=== PATIENT | female | born 1995 | race Caucasian/White ===

== ENCOUNTER 2019-05-23 12:28 | Outpatient (CLI) | payer MEDICAID ==
[~2019-05-23] VITALS: Ht 162.6 cm; Wt 80.9 kg
--- NOTE | 2019-05-23 12:40 | NUR ---
Patient to [facility] with significant other via wheelchair, changed into gown, FHR/TOCO monitors placed and explained. Patient states she "felt some contractions starting around 0900 this morning and then has had constant abdomnial pain since then" Denies any leaking of fluid or vaginal bleeding. Plan of care discussed. 1252:SVE-closed/thick/high
[2019-05-23] MEDS ORDERED: PRENATAL TABLET PO (12:54)
[2019-05-23] MEDS ORDERED: FERRETTS I40 MG/15 M PO (12:54)
[2019-05-23 13:00] VITALS: BP 108/64; PULSE 95; TEMP 99
[2019-05-23 13:20] VITALS: BP 102/56; PULSE 82
--- NOTE | 2019-05-23 13:20 | NUR ---
Patient given discharge instructions and understand/agrees, signs papers. Off monitor to change. 1330: Patient ambulatory off unit with significant other.
== END 2019-05-23 13:30 | disposition home or self-care (01) ==
LOC: LDRO 12:28 → LDR 12:40 → LDRO 13:30
DX: O62.9 Abnormality of forces of labor, unspecified (principal); O26.893 Other specified pregnancy related conditions, third trimester; R10.9 Unspecified abdominal pain; Z3A.30 30 weeks gestation of pregnancy
CPT/HCPCS: OP

== ENCOUNTER 2019-07-27 07:06 | Inpatient (IN) | payer MEDICAID ==
[2019-07-27] VITALS (22 sets, daily range): BP systolic 101–124; BP diastolic 54–77; PULSE 69–126; TEMP 97.4–98.3
[~2019-07-27] VITALS: Ht 162.6 cm; Wt 85.0 kg
[~2019-07-27 07:06] MED LIST: FERRETTS I40 MG/15 M PO; PRENATAL TABLET PO
[2019-07-27 08:20] LABS: HEMOGLOBIN 10.7 g/dl (12.5-16.0); MEAN CELL VOLUME 80 fl (80.0-100.0); MEAN CORPUSCULAR HEMOGLOBIN 26 pg (27.0-31.0); MEAN CORPUSCULAR HGB CONC 32 g/dl (33.0-37.0); MEAN PLATELET VOLUME 10.5 fl (7.4-10.4); PLATELET COUNT 386 K/mm3 (130-400); RED BLOOD COUNT 4.17 M/mm3 (4.10-5.30); REDCELL DISTRIBUTION WIDTH-CV 16.3 % (11.5-14.5)
[2019-07-27 08:30] LABS: HEMATOCRIT 33.3 % (37.0-47.0)
[2019-07-27 08:39] LABS: TRICYCLIC ANTIDEPRESS URINE NEGATIVE
[2019-07-27 09:24] LABS: BAND 2 % (0-10); EOSINOPHIL 1 % (0-4); LYMPHOCYTE 39 % (20.0-51.0); METAMYELOCYTE 1 % (0-0); MYELOCYTE 1 % (0-0); NEUTROPHILS 50 % (42.0-75.2); PLATELET ESTIMATE NORMAL (NORMAL)
[2019-07-28] VITALS: BP 97/52; PULSE 69; TEMP 98
[2019-07-28 08:00] VITALS: BP 111/75; PULSE 74; TEMP 97.8
[2019-07-28 16:00] VITALS: BP 107/63; PULSE 69; TEMP 97.7
[2019-07-28 21:00] VITALS: BP 110/66; PULSE 78; TEMP 98.9
[2019-07-29 07:00] VITALS: BP 112/62; PULSE 79; TEMP 98.6
[2019-07-29] MEDS ORDERED: MOTRIN 800800 MG/TAB PO (07:43)
[2019-07-29] MEDS ORDERED: PERCOCET 325 MG1 TA2 PO (07:44)
== END 2019-07-29 14:00 | disposition home or self-care (01) | DRG 806 ==
LOC: OB 07:06 → LDR 07:06 → OB 16:32
PROVIDERS: ADMIT Obstetrics & Gynecology
PROC: 10E0XZZ Delivery of Products of Conception, External Approach (ICD-10-PCS; principal; 2019-07-27)
PROC: 0UQG7ZZ Repair Vagina, Via Natural or Artificial Opening (ICD-10-PCS; 2019-07-27)
DX: O99.02 Anemia complicating childbirth (principal); O71.4 Obstetric high vaginal laceration alone; Z37.0 Single live birth; D64.9 Anemia, unspecified; Z3A.39 39 weeks gestation of pregnancy; O99.824 Streptococcus B carrier state complicating childbirth; Z23 Encounter for immunization; Z87.891 Personal history of nicotine dependence
CPT/HCPCS: J2540; J2590; J7120